=== PATIENT | male | born 1995 | race Caucasian/White ===

== ENCOUNTER 2023-02-05 11:22 | Emergency (ER) | payer OTHER, SELFPAY ==
[2023-02-05 11:30] VITALS: BP 122/69; PULSE 71; RESP 20; TEMP 37.1; O2SAT 96
--- NOTE | 2023-02-05 11:45 | ED.ABDPAIN ---
HPI - Abdominal Pain General Chief Complaint: Abdominal Pain Stated Complaint: Fever,Stomach Pain,Diarrhea Time Seen by Provider: 02/05/23 11:40 Source: patient, RN notes reviewed and old records reviewed Mode of arrival: ambulatory Limitations: no limitations History of Present Illness HPI narrative: 28 year old male who presents to [facility] care with complaints of 4 day history of watery diarrhea with some abdominal cramping. Patient reports that no one else in household is ill at this time. Patient reports that he did have a fever up to 102 yesterday and slept most of the day but no fever today noted. Patient reports that he has had 6 watery diarrhea stools today and denies any noted blood in stool or any seedy looking stool., denies any recent antibiotic use. Patient does have large umbilical hernia, denies any pain to abdomen on palpation MD elicited complaint: abdominal pain (mid abdomen described as cramping.) Onset (ago): day(s) (4) Location: other (mid abdominal cramping) Related Data Home Medications Medication Instructions Recorded Confirmed amlodipine 10 mg tablet 10 mg PO DAILY 02/05/23 02/05/23 atenolol 50 mg tablet 50 mg PO DAILY 02/05/23 02/05/23 hydrochlorothiazide 25 mg tablet 25 mg PO DAILY 02/05/23 02/05/23 lisinopril 40 mg tablet 40 mg PO DAILY 02/05/23 02/05/23 Allergies Allergy/AdvReac Type Severity Reaction Status Date / Time No Known Allergies Allergy Verified 06/03/16 14:06 Review of Systems Review of Systems: CONSTITUTIONAL: Reported yesterday fever, chills, or sweats. ENT: Denies rhinorrhea, congestion, sore throat, or otalgia. CARDIOVASCULAR: Denies chest pain, palpitations, or edema. RESPIRATORY: Denies cough or dyspnea. GASTROINTESTINAL: Reports abdominal cramping, no nausea, vomiting,positive for diarrhea. GENITOURINARY: Denies dysuria or hematuria. SKIN: Denies rash or itching. MUSCULOSKELETAL: Denies back pain, joint pain, or myalgia. NEUROLOGIC: Denies headache, numbness, or weakness. All systems reviewed & are unremarkable except as noted in HPI and below PMFSH Past Medical History Medical History (Updated 02/07/23 @ 10:07 by Radha Bryson NP) Hypertension Umbilical hernia Family History Family History (Updated 11/29/14 @ 10:58 by DOCTOR UNKNOWN) Mother Hypertension Father Patient's father is , Onset Age: 56 Other Cerebrovascular accident Diabetes mellitus Family history of arthritis Family history of cardiovascular disease Family history of gout Social History Social History (Updated 02/07/23 @ 10:08 by Radha Bryson NP) Smoking status: Former smoker Second hand tobacco smoke exposure: No Alcohol intake: current Substance use type: does not use Living arrangements: with family Gender identity (if verbalized by the patient): Male Comments At time of signature, agree with nursing past medical, surgical, social and family history. There is no relevant family history pertinent to the presenting complaint Exam Narrative: GENERAL: Well-appearing, well-nourished, morbidly obese,and in no acute distress. HEAD: Normocephalic, atraumatic. EYES: PERRLA, conjunctivae clear, and EOMI. ENT: Nares clear. Mucous membranes moist. Oropharynx without edema, erythema, or lesions. Tonsils not enlarged and without exudate. NECK: Supple. No lymphadenopathy CHEST: Speaks in full sentences. No respiratory distress.SAO2 96% on room air HEART: Regular rate and rhythm. ABDOMEN: Soft, rounded obese, nondistended. No guarding, rebound tenderness, or rigid. No pulsatilla masses. Bowel sounds present in all four quadrants. No organomegaly. Negative Lam?s sign. No periumbilical tenderness. No Supra public tenderness or distension. Good femoral pulses bilaterally. No hernia noted. No scars or surface trauma. No McBurney point tenderness, large umbilical hernia noted with no pain on palpation SKIN: Warm, dry, no rash. N
== END 2023-02-05 12:18 | disposition home or self-care (01) ==
PROVIDERS: Emergency Provider Registered Nurse; PCP Physician Assistant
DX: K52.9 Noninfective gastroenteritis and colitis, unspecified (principal); Z87.891 Personal history of nicotine dependence; I10 Essential (primary) hypertension
CPT/HCPCS: 99203; G0463